=== PATIENT | male | born 1970 | race Caucasian/White ===

== ENCOUNTER 2018-04-17 17:45 | Emergency (ER) | payer SELFPAY ==
[~2018-04-17] VITALS: Ht 170.2 cm; Wt 66.7 kg
--- NOTE | 2018-04-17 17:55 | ED.ADGEN ---
Adult General Chief Complaint Chief Complaint ".. I ve got this abscess .. I ve been trying to treat with Bactrim x 2 days. .. then some left over Clindamycin for 2 days.. but I am out of left over antibiotics....and it is worse..."'.. I had been tried to drain it myself...you can see where I stuck a needle in it..." HPI HPI Patient is a 48 year old male who presents with above hx and complaints Rt. fore arm abscess and cellulitis. Pt. has area of 5 x 5 cm cellulitis with pointing abscess. Pt. distal neurovascular in tact. Pt. is Rt. hand dominate. Pt. does not remember last tetanus. Pt. has had previous MRSA. No hx. of immunosuppression. Review of Systems Review of Systems Constitutional: Denies fever or chills [] Eyes: Denies change in visual acuity, redness, or eye pain [] HENT: Denies nasal congestion or sore throat [] Respiratory: Denies cough or shortness of breath [] Cardiovascular: No additional information not addressed in HPI [] GI: Denies abdominal pain, nausea, vomiting, bloody stools or diarrhea [] : Denies dysuria or hematuria [] Musculoskeletal: Denies back pain or joint pain [] Integument: Denies rash or skin lesions [] Complaints of abscess. Neurologic: Denies headache, focal weakness or sensory changes [] Endocrine: Denies polyuria or polydipsia [] All other systems were reviewed and found to be within normal limits, except as documented in this note. Family History Family History Non-contributory Current Medications Current Medications Current Medications Medications (Trade) Dose Ordered Sig/Kristy Start Time Stop Time Status Last Admin Dose Admin Ceftriaxone Sodium (Rocephin Im) 1 gm 1X ONCE 04/17/18 19:00 04/17/18 19:01 DC 04/17/18 19:21 1 GM Morphine Sulfate (Morphine 10mg Syringe) 10 mg 1X ONCE 04/17/18 19:00 04/17/18 19:01 DC 04/17/18 19:29 10 MG Tetanus/ Diphtheria Toxoids Adsorbed (Tenivac Vial) 0.5 ml ONCE ONCE 04/17/18 18:45 04/17/18 18:57 DC 04/17/18 19:18 0.5 ML Trimethoprim/ Sulfamethoxazole (Bactrim Ds) 1 tab 1X ONCE 04/17/18 19:00 04/17/18 19:01 DC 04/17/18 19:15 1 TAB Allergies Allergies Allergies Coded Allergies Type Severity Reaction Last Updated Verified Penicillins Allergy Unknown 04/17/18 Yes Physical Exam Physical Exam Constitutional: Well developed, well nourished, no acute distress, non-toxic appearance. [] HENT: Normocephalic, atraumatic, bilateral external ears normal, oropharynx moist, no oral exudates, nose normal. [] Eyes: PERRLA, EOMI, conjunctiva normal, no discharge. [] Neck: Normal range of motion, no tenderness, supple, no stridor. [] Cardiovascular:Heart rate regular rhythm, no murmur [] Lungs & Thorax: Bilateral breath sounds equal at apex with scattered wheezes on auscultation [] Abdomen: Bowel sounds normal, soft, no tenderness, no masses, no pulsatile masses. [] Skin: Warm, dry, no erythema, no rash. [] Abscess/ cellulitis as per HPI Back: No tenderness, no CVA tenderness. [] Extremities: No tenderness, no cyanosis, no clubbing, ROM intact, no edema. [] Neurologic: Alert and oriented X 3, normal motor function, normal sensory function, no focal deficits noted. [] Psychologic: Affect normal, judgement normal, mood normal. [] Current Patient Data Vital Signs Vital Signs Date Time Temp Pulse Resp B/P (MAP) Pulse Ox O2 Delivery O2 Flow Rate FiO2 04/17/18 20:58 101 16 105/69 (81) 100 Room Air 04/17/18 18:45 97.7 EKG EKG [] Radiology/Procedures Radiology/Procedures [] Course & Med Decision Making Course & Med Decision Making Pertinent Labs and Imaging studies reviewed. (See chart for details)- Procedure Note- Incision and Drainage. Area of abscess and cellulitis cleaned with soap and water. Incision with one stick of 11 blade with drainage of pus. Pt. to take Bactrim DS twice a day x 10 - to take all of antibiotics. Follow up with primary. Return any concerns. Must follow up. [] Final Impression Final Impression 1. Abscess[]/Cellulitis Priyanka Disclaimer Priyanka Disclaimer This electronic medical record was generated, in whole or in part, using a voice recognition dictation system. KAYLEIGH REYES MD Apr 17, 2018 17:55
[2018-04-17] MEDS ORDERED: SULF1TAB24 PO (18:34)
[2018-04-17] MEDS ORDERED: TETANUS AND DIPHTHERIA TOX/PF 0.5 ML VIAL. VAX IM ONE (18:45)
[2018-04-17] MEDS ORDERED: MORPHINE SULFATE 10 MG/ML SYRINGE. SQ ONE (19:00)
[2018-04-17] MEDS ORDERED: SMZ/TMP 800/160MG TABLET. PO ONE (19:00)
[2018-04-17] MEDS ORDERED: cefTRIAXone IM 1 GM VIAL IM ONE (19:00)
[2018-04-17 20:58] VITALS: BP 105/69
== END 2018-04-17 20:58 | disposition home or self-care (01) ==
LOC: ER 17:45
DX: L02.413 Cutaneous abscess of right upper limb (principal); Z88.0 Allergy status to penicillin
CPT/HCPCS: 10060; 90471; 90714; 96372; 99284; J0696; J2270

== ENCOUNTER 2019-05-05 19:06 | Emergency (ER) | payer SELFPAY ==
[~2019-05-05] VITALS: Ht 170.2 cm; Wt 66.7 kg
[~2019-05-05 19:06] MED LIST: SULF1TAB24 PO
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
[2019-05-05] MEDS ORDERED: SULF1TAB24 PO (20:36)
[2019-05-05] MEDS ORDERED: HYDROcodone/APAP 5/325MG 1 TAB TABLET PO ONE (20:45)
[2019-05-05] MEDS ORDERED: IV NORMAL SALINE 1,000ML 1,000 ML IV ONE (20:45)
[2019-05-05] MEDS ORDERED: SMZ/TMP 800/160MG TABLET. PO ONE (20:45)
[2019-05-05 21:34] VITALS: BP 134/76
== END 2019-05-05 21:33 | disposition home or self-care (01) ==
LOC: ER 19:06
DX: L02.415 Cutaneous abscess of right lower limb (principal); L03.115 Cellulitis of right lower limb; M54.89 Other dorsalgia; G89.29 Other chronic pain; Z88.0 Allergy status to penicillin
CPT/HCPCS: 10060; 87070; 99283